=== PATIENT | female | born 1975 | race Caucasian/White ===

== ENCOUNTER 2019-07-25 14:26 | Emergency (ER) | payer OTHER ==
[2019-07-25 14:41] VITALS: BP 157/85; PULSE 86; TEMP 97.9; BMI 27.8
--- NOTE | 2019-07-25 14:43 | PDOC ---
Rapid Medical Evaluation Time Seen by Provider: 07/25/19 14:37 Medical Evaluation: 07/25/19 14:38 Pt presents for evaluation of R sided flank pain. She states this has been going on for two weeks. States the pain radiates into her abdomen Exam: TTP of the R midback with some associated R CVA tenderness. Orders: Labs, urine Pt to proceed to the ER for further evaluation Discharge Disposition - Diagnosis Flank pain - Referrals - Patient Instructions - Post Discharge Activity
--- NOTE | 2019-07-25 15:17 | PDOC ---
History of Present Illness - General Chief Complaint: Pain, Acute Stated Complaint: RT LOWER PAIN Time Seen by Provider: 07/25/19 14:37 - History of Present Illness Initial Comments: 07/25/19 15:14 43 yo F with no sig pmh who p/w right flank, and right sided lower and upper abdominal pain. Patient reports 2 weeks of progressive, sharp, right sided lower and upper abdominal pain radiating to right flank, lasting for seconds and resolving spontaneously. Pain worse with deep inhalation, Denies postprandial pain, or po analgesia use. Nml bowel habits, PO intake. Patient denies TOBIN, vision change, palpitations, cough, wheezing, orthopena, PND , leg swelling/pain, N/V, F,C, CP, SOB, urinary complaints, pelvic pain, vaginal bleeding, hematuria, BPR, diarrhea, constipation, lightheadedness, weakness, sensory changes. Denies recent sick contacts, or travels. PMHx: as noted above Surgical: Denies ROS: as noted SHx: Denies Etoh, IVDA, tobacco use Allergies: NKDA Past History - Past Medical History Allergies/Adverse Reactions: Allergies Allergy/AdvReac Type Severity Reaction Status Date / Time No Known Allergies Allergy Verified 07/25/19 14:41 COPD: No Other medical history: DENIES - Immunization History Immunization Up to Date: Yes - Psycho Social/Smoking Cessation Hx Smoking History: Never smoked Have you smoked in the past 12 months: No Information on smoking cessation initiated: No Hx Alcohol Use: No Drug/Substance Use Hx: No Review of Systems - Review of Systems Comments:: 07/25/19 15:14 GENERAL/CONSTITUTIONAL: No fever or chills. No weakness. HEAD, EYES, EARS, NOSE AND THROAT: No change in vision. No ear pain or discharge. No sore throat. CARDIOVASCULAR: No chest pain or shortness of breath RESPIRATORY: No cough, wheezing, or hemoptysis. GASTROINTESTINAL: No nausea, vomiting, diarrhea or constipation. GENITOURINARY: No dysuria, frequency, or change in urination. MUSCULOSKELETAL: + R lower back/flank pain. No joint or muscle swelling or pain. No neck or back pain. SKIN: No rash NEUROLOGIC: No headache, vertigo, loss of consciousness, or change in strength/ sensation. ENDOCRINE: No increased thirst. No abnormal weight change HEMATOLOGIC/LYMPHATIC: No anemia, easy bleeding, or history of blood clots. ALLERGIC/IMMUNOLOGIC: No hives or skin allergy. *Physical Exam - Vital Signs Last Vital Signs Temp Pulse Resp BP Pulse Ox 97.9 F 86 20 157/85 99 07/25/19 14:37 07/25/19 14:37 07/25/19 14:37 07/25/19 14:37 07/25/19 14:37 - Physical Exam 07/25/19 15:14 GENERAL: Awake, alert, and fully oriented, in no acute distress HEAD: No signs of trauma, normocephalic, atraumatic EYES: PERRLA, EOMI, sclera anicteric, conjunctiva clear ENT: Hearing grossly normal, nares patent, oropharynx clear without exudates. Moist mucosa NECK: Normal ROM, supple, no lymphadenopathy, JVD, or masses LUNGS: No distress, speaks full sentences, clear to auscultation bilaterally HEART: Regular rate and rhythm, normal S1 and S2, no murmurs, rubs or gallops, peripheral pulses normal and equal bilaterally. ABDOMEN: Soft, +RUQ>RLQ, + R flank ttp, + epigastric ttp. normoactive bowel sounds. No guarding, no rebound. No masses. Neg CVA ttp. EXTREMITIES : Normal inspection, Normal range of motion, no edema. No clubbing or cyanosis NEUROLOGICAL: Cranial nerves II through XII grossly intact. Normal speech, normal gait, no focal sensorimotor deficits SKIN: Warm, Dry, normal turgor, no rashes or lesions noted ED Treatment Course - LABORATORY CBC & Chemistry Diagram: 07/25/19 15:15 07/25/19 15:15 - ADDITIONAL ORDERS Additional order review: 07/25/19 18:05 Keara Andrea Name: TEQUILA EASLEY DEPARTMENT OF RADIOLOGY Phys: Gorge Ocasio RESIDENT : 1975 Age: 43 Sex: F [facility] Acct: [id number] Loc: [address] Exam Date: 07/25/19 Status: BERTHA [place] [id number] Unit Number: [id number] EXAM#: TYPE/EXAM: RESULT: [id number] US/ABDOMEN US -LIMITED [id number] 0076 US/KIDNEY / RENAL US HISTORY PROVIDED: Right upper quadrant and flank pain. Real time examination of the abdomen demonstrates the following: The gallbladder is normal in size and free of calculi with no evidence of intra or extrahepatic biliary duct dilatation. The liver is normal in size. It is hyperechoic in texture consistent with diffuse fatty infiltration. No discrete intrahepatic masses are identified. Hepatopedal flow is documented within the main portal vein. The pancreas is normal in size and texture with no pancreatic masses identified. The tail of the pancreas was not completely visualized due to overlying bowel gas. The kidneys are normal in size with the right kidney measuring 10.7 x 4.8 x 4.1 cm and the left kidney measuring 10.5 x 5.2 x 4.9 cm. They are normal in position and texture with no evidence of hydronephrosis or contour deforming renal masses. There is no sonographic evidence of nephrolithiasis. There is no evidence of AAA. The IVC is patent. IMPRESSION: 1. Diffuse fatty infiltration of liver. 2. Morphologically normal kidneys with no evidence of nephrolithiasis, hydronephrosis or acute pathology. Reported By: Wan Carrillo MD 07/25/191741 Gorge Ocasio Technologist: Judith Nicholas Transcribed Date/Time: 07/25/191741 Grind Operator: Wan Carrillo Printed Date/Time: By Medical Decision Making - Medical Decision Making 07/25/19 15:15 43 yo F with no sig pmh who p/w right flank, and right sided lower and upper abdominal pain, radiating to right flank. Vitals wnl, AF, A&OX3. Physical exam notable for right sided posterior chest wall, and right flank ttp. + Epigastria, RUQ > RLQ ttp. Denies N/V, F,C, urinary complaints, hematuria,vaginal/pelvic pain, bleeding, lightheadedness, weakness, sensory changes. Will consider biliary dz., esophagitis, gastritis, pancreatitis, PNA, MSK etiology. Will evaluate for nephrolithiasis/obstructive uropathy. Low suspicion pyelonephiritis. 07/25/19 15:32 Ed Course: Patient refuses PO analgesia 07/25/19 16:23 Laboratory Tests 07/25/19 07/25/19 07/25/19 15:15 15:15 15:15 WBC 9.0 Hgb 14.2 Hct 42.2 Plt Count 373 Sodium 137 Potassium 4.2 BUN 11.2 Creatinine 0.7 Lipase 84 Urine Color Yellow Urine Blood 3+ H Urine Nitrite Negative Ur Leukocyte Esterase Negative Urine RBC (Auto) 6 Urine Bacteria (Auto) 80.4 07/25/19 18:06 RUQ, RENAL U/S:IMPRESSION: 1. Diffuse fatty infiltration of liver. 2. Morphologically normal kidneys with no evidence of nephrolithiasis, hydronephrosis or acute pathology. 07/25/19 18:17 Patient pending CTAP 07/25/19 19:14 Patient endorsed to night team, pending serum preg, CTAP Patient otherwise stable and ready for d/c with return precautions if CTAP unremarkable Discharge - Discharge Information Problems reviewed: Yes Clinical Impression/Diagnosis: Flank pain Condition: Stable Disposition: HOME - Admission No - Follow up/Referral Referrals: Mary Mcrae CNM [Certified Nurse Golf Course Ranger] - Nam Deleon MD [Staff Physician] - Joleen Dickerson DO [Primary Care Provider] - - Patient Discharge Instructions Patient Printed Discharge Instructions: DI for Vaginal Bleeding, Nonalcoholic Fatty Liver Disease, DI for Flank Pain Additional Instructions: Please return to the emergency department with any new or worsening symptoms or concerns. Please follow up with your primary care physician within 72 hours. you need to follow up with your air brake mechanic call mary Mcrae or [facility] let them know you are having irregular period and ask for followup within one week your ultrasound shows you have FAtty liver, you need to see a manager architectural for this. see referral infomration for arlyn Brown to schedule a followup. - Post Discharge Activity
[2019-07-25 15:46] LABS: BASO % 0.3 % (0-2.0); EOS % 2.2 % (0-4.5); HEMATOCRIT 42.2 % (32.4-45.2); HEMOGLOBIN 14.2 GM/dL (10.7-15.3); MCH 30.4 pg (25.7-33.7); MCHC 33.8 g/dl (32.0-36.0); MEAN CELL VOLUME 90.2 fl (80-96); MEAN PLT VOLUME 8.8 fl (7.5-11.1); MONO % 5.5 % (3.8-10.2); PLATELET COUNT 373 K/MM3 (134-434); RBC 4.68 M/mm3 (3.60-5.2); RDW 13.3 % (11.6-15.6)
[2019-07-25 16:08] LABS: EPI CELLS 1.8 /HPF (0-5/HPF); HYALINE CASTS 1 /lpf (0-8); PH,URINE 6.5 (5.0-8.0); URINE APPEARANCE CLEAR; URINE BACTERIA 80.4 /hpf (NEGATIVE); URINE BILIRUBIN NEGATIVE (NEGATIVE); URINE COLOR YELLOW; URINE GLUCOSE (UA) NEGATIVE (NEGATIVE); URINE KETONE NEGATIVE (NEGATIVE); URINE LEUK ESTERASE NEGATIVE (NEGATIVE); URINE NITRITE NEGATIVE (NEGATIVE); URINE PROTEIN NEGATIVE (NEGATIVE); URINE RBC 6 /hpf (0-4); URINE UROBILINOGEN 0.2 mg/dL (0.2-1.0); URINE WBC 1 /hpf (0-5)
[2019-07-25 16:15] LABS: BILIRUBIN,TOTAL 0.5 mg/dL (0.2-1); BLOOD UREA NITROGEN 11.2 mg/dL (7-18); CALCIUM 9.6 mg/dL (8.5-10.1); CREATININE 0.7 mg/dL (0.55-1.3); POTASSIUM 4.2 mmol/L (3.5-5.1); TOT PROT 8.1 g/dl (6.4-8.2)
--- NOTE | 2019-07-25 16:24 | PDOC ---
Attending Attestation - Resident Resident Name: Gorge Ocasio - ED Attending Attestation I have performed the following: I have examined & evaluated the patient, The case was reviewed & discussed with the resident, I agree w/resident's findings & plan, Exceptions are as noted - HPI HPI: 07/25/19 16:22 43-year-old female no past medical history currently has an IUD here to come in today complaining of right-sided upper and lower quadrant pain. Patient states her symptoms are colicky intermittent radiating to the flank and groin has been off and on for the last 2 weeks today she felt the pain was getting worse she also describes a reddish discharge that has been going on for the same amount of time. Denies any dysuria or hematuria no known history of renal stones or gallstones. States the pain is not worse with meals no cough no problems breathing did not take anything for her pain prior to arrival - Physicial Exam PE: 07/25/19 16:23 Awake alert no acute distress lungs are clear bilaterally heart is regular without murmurs rubs or gallops abdomen is soft there is right upper quadrant tenderness no rebound no guarding right lower quadrant is mildly tender to palpation there is right CVA tenderness patient is awake alert and oriented x3 - Medical Decision Making 07/25/19 16:23 43-year-old female here today complaining of right-sided abdominal pain and flank pain which is been intermittent x2-week. Mild tenderness right upper quadrant lower quadrant on exam. Differential diagnosis includes renal colic pyelonephritis biliary colic UTI or Willian is also considered. Plan renal ultrasound and right upper quadrant ultrasound labs UA will assess pending evaluation and results may require CT abdomen and pelvis. appendicitis less likely due to length of her symtpoms. no h /o prior surgeries. 07/25/19 19:20 pt with hematuria. us shows fatty liver. xiomara obtain ct spiral stone. pt with IUD , states not y however would like to wait for hcg prior to CT.
--- NOTE | 2019-07-25 22:02 | PDOC ---
*Physical Exam - Vital Signs Last Vital Signs Temp Pulse Resp BP Pulse Ox 97.9 F 86 20 157/85 99 07/25/19 14:37 07/25/19 14:37 07/25/19 14:37 07/25/19 14:37 07/25/19 14:37 ED Treatment Course - LABORATORY CBC & Chemistry Diagram: 07/25/19 15:15 07/25/19 15:15 - ADDITIONAL ORDERS Additional order review: Laboratory Results 07/25/19 07/25/19 07/25/19 15:15 15:15 15:15 Sodium 137 Potassium 4.2 Chloride 103 Carbon Dioxide 27 Anion Gap 7 L BUN 11.2 Creatinine 0.7 Est GFR (CKD-EPI)AfAm 122.13 Est GFR (CKD-EPI)NonAf 105.37 Random Glucose 83 Calcium 9.6 Total Bilirubin 0.5 AST 16 ALT 15 Alkaline Phosphatase 72 Total Protein 8.1 Albumin 4.0 Lipase 84 Serum , Qual Negative Urine Color Yellow Urine Appearance Clear Urine pH 6.5 Ur Specific [place] 1.007 L Urine Protein Negative Urine Glucose (UA) Negative Urine Ketones Negative Urine Blood 3+ H Urine Nitrite Negative Urine Bilirubin Negative Urine Urobilinogen 0.2 Ur Leukocyte Esterase Negative Urine WBC (Auto) 1 Urine RBC (Auto) 6 Urine Casts (Auto) 1 U Epithel Cells (Auto) 1.8 Urine Bacteria (Auto) 80.4 07/25/19 15:15 RBC 4.68 MCV 90.2 MCHC 33.8 RDW 13.3 MPV 8.8 Neutrophils % 56.0 Lymphocytes % 36.0 Monocytes % 5.5 Eosinophils % 2.2 Basophils % 0.3 Medical Decision Making - Medical Decision Making 07/25/19 22:01 1. Bilateral nephrolithiasis with 11 mm left lower pole calculus. 2. No evidence of hydronephrosis or obstructive uropathy. 3. Prominent uterus and 4 cm left ovarian cyst. Discussed findings with patient. Will give motrin for pain and referral for GI and Urology. Patient has their own OBGYN Dr. Mcrae to see. Discharge - Discharge Information Problems reviewed: Yes Clinical Impression/Diagnosis: Flank pain Condition: Stable Disposition: HOME - Admission No - Follow up/Referral Referrals: Mary Mcrae CNM [Certified Nurse Getterer] - Nam Deleon MD [Staff Physician] - Joleen Dickerson DO [Primary Care Provider] - - Patient Discharge Instructions Patient Printed Discharge Instructions: DI for Vaginal Bleeding, Nonalcoholic Fatty Liver Disease, DI for Flank Pain Additional Instructions: Please return to the emergency department with any new or worsening symptoms or concerns. Please follow up with your primary care physician within 72 hours. you need to follow up with your forest economics professor call mary Mcrae or [facility] let them know you are having irregular period and ask for followup within one week your ultrasound shows you have FAtty liver, you need to see a snuff blender for this. see referral infomration for DR Deleon, call to schedule a followup. - Post Discharge Activity
== END 2019-07-25 22:12 | disposition home or self-care (01) ==
LOC: JER 14:26
DX: N20.0 Calculus of kidney (principal); Z97.5 Presence of (intrauterine) contraceptive device
CPT/HCPCS: 36415; 71046-TC-FY; 71101-TC-RT-FY; 74176-TC; 76705-TC; 76775-TC; 80053; 81003; 83690; 84703; 85025; 87086; 99282-25

== ENCOUNTER 2023-10-31 20:33 | Emergency (ER) | payer OTHER ==
[2023-10-31 20:36] VITALS: BP 155/73; PULSE 82; RESP 16; TEMP 98; BMI 26.6
[2023-10-31] MEDS ORDERED: SULFAMETHOXAZOLE/TRIMETHOPRIM 800MG/160MG D.S. TABLET ONE (22:38)
[2023-10-31] MEDS: SULFAMETHOXAZOLE/TRIMETHOPRIM 800MG/160MG D.S. TABLET PO ONE (22:46)
== END 2023-10-31 22:48 | disposition home or self-care (01) ==
LOC: JERFT 20:33
DX: L02.221 Furuncle of abdominal wall (principal); M25.562 Pain in left knee; W01.0XXA Fall on same level from slipping, tripping and stumbling without subsequent striking against object, initial encounter
CPT/HCPCS: 73562-TC-LT-FY; 99283-25